=== PATIENT | female | born 1955 | race Caucasian/White ===

== ENCOUNTER 2016-12-14 20:56 | Emergency (ER) | payer MEDICARE, OTHER | END 2016-12-14 23:45 | disposition critical access hospital (66) | LOC: ER 20:56 | DX: J44.1 Chronic obstructive pulmonary disease with (acute) exacerbation (principal); R09.02 Hypoxemia; R79.89 Other specified abnormal findings of blood chemistry; F17.210 Nicotine dependence, cigarettes, uncomplicated; Z90.710 Acquired absence of both cervix and uterus; Z88.6 Allergy status to analgesic agent | CPT/HCPCS: 36415; 87502; 96365; 96375; J0696 ==

== ENCOUNTER 2016-12-14 20:56 | Inpatient (IN) | payer MEDICARE, OTHER ==
--- NOTE | 2016-12-15 17:35 | NUR ---
1700 - PATIENT C/O ANXIETY. VISTARIL 25 MG PO ADMINISERED/MD ORDER.
== END 2016-12-16 17:10 | disposition home or self-care (01) | DRG 189 ==
LOC: ER 20:56 → MED 23:45
PROVIDERS: ADMIT Internal Medicine
DX: J96.01 Acute respiratory failure with hypoxia (principal); J18.9 Pneumonia, unspecified organism; J44.0 Chronic obstructive pulmonary disease with (acute) lower respiratory infection; J44.1 Chronic obstructive pulmonary disease with (acute) exacerbation; F17.210 Nicotine dependence, cigarettes, uncomplicated; R74.8 Abnormal levels of other serum enzymes; I10 Essential (primary) hypertension; Z91.14 Patient's other noncompliance with medication regimen; Z90.710 Acquired absence of both cervix and uterus; Z90.49 Acquired absence of other specified parts of digestive tract; Z82.5 Family history of asthma and other chronic lower respiratory diseases; Z80.1 Family history of malignant neoplasm of trachea, bronchus and lung; Z83.3 Family history of diabetes mellitus; Z82.49 Family history of ischemic heart disease and other diseases of the circulatory system
CPT/HCPCS: 36415; 87502; J0456; J0696; J1650; Q9967

== ENCOUNTER 2017-01-05 17:34 | Emergency (ER) | payer MEDICARE, OTHER | END 2017-01-05 21:05 | disposition home or self-care (01) | LOC: ER 17:34 | DX: R60.0 Localized edema (principal); E87.1 Hypo-osmolality and hyponatremia; I10 Essential (primary) hypertension; J44.9 Chronic obstructive pulmonary disease, unspecified; F17.210 Nicotine dependence, cigarettes, uncomplicated; Z90.710 Acquired absence of both cervix and uterus; Z79.899 Other long term (current) drug therapy; Z88.6 Allergy status to analgesic agent | CPT/HCPCS: 36415 ==